=== PATIENT | male | born 1970 | race Caucasian/White ===

== ENCOUNTER 2017-12-25 04:30 | Emergency (ER) | payer OTHER ==
[~2017-12-25] VITALS: Ht 185.4 cm; Wt 112.0 kg
[2017-12-25 04:57] VITALS: Ht 185.4 cm; Wt 112.0 kg
[2017-12-25 07:04] LABS: SITE FLUID LEFT KNEE; SOURCE FLUID SYNOVIAL FLUID
[2017-12-25 08:12] LABS: APPEARANCE FLUID HAZY; SOURCE FLUID KNEE
[2017-12-25 08:13] LABS: COLOR FLUID YELLOW; RBC FLUID 430 /cumm; WBC FLUID 2680 /cumm
[2017-12-25 08:27] LABS: LYMPHOCYTE FLUID 8 %; MONOCYTE FLUID 8 %
[2017-12-25 08:30] VITALS: BP 124/78
== END 2017-12-25 09:10 | disposition home or self-care (01) ==
LOC: ED 04:30
PROVIDERS: Specialist
DX: M25.562 Pain in left knee (principal); M25.462 Effusion, left knee
CPT/HCPCS: Q0092

== ENCOUNTER 2018-03-20 02:00 | Emergency (ER) | payer OTHER ==
[~2018-03-20] VITALS: Ht 185.4 cm; Wt 108.9 kg
[2018-03-20 02:30] VITALS: BP 129/76
== END 2018-03-20 02:55 | disposition left against medical advice (07) ==
LOC: ED 02:00
DX: M25.461 Effusion, right knee (principal)

== ENCOUNTER 2019-03-07 23:52 | Emergency (ER) | payer OTHER ==
[~2019-03-07] VITALS: Ht 185.4 cm; Wt 112.5 kg
[2019-03-08 00:12] VITALS: Ht 185.4 cm; Wt 112.5 kg
[2019-03-08 06:16] VITALS: BP 136/79
== END 2019-03-08 06:23 | disposition home or self-care (01) ==
LOC: ED 23:52
DX: M54.5 Low back pain (principal); M10.9 Gout, unspecified